=== PATIENT | female | born 1965 | race Caucasian/White ===

== ENCOUNTER 2016-11-23 14:00 | Emergency (ER) | payer OTHER ==
[2016-11-23 13:56] LABS: URINE SOURCE CLEAN CATCH
[2016-11-23 14:00] LABS: URINE APPEARANCE CLEAR; URINE BILIRUBIN NEG (NEG); URINE BLOOD 2+ (NEG); URINE COLOR YELLOW; URINE GLUCOSE NEG (NORM); URINE KETONE NEG (NEG); URINE LEUKOCYTE ESTERASE NEG (NEG); URINE NITRATE NEG (NEG); URINE PROTEIN NEG (NEG); URINE UROBILINOGEN 0.2 MG/DL (NORM)
[~2016-11-23 14:00] MED LIST: ACETAMINOPHEN325 MG PO; ALBUTEROL17 GM INH; BACTRIM 400-801 TA1 PO; CIPRO PO; DICLOFENAC PO; FLEXERIL PO; HYDRALAZINE HCL25 MG PO; IBUPROFEN PO; K-DUR20 ME2 PO; KETOPROFEN PO; LISINOPRIL PO; LISINOPRIL10 MG PO; LOPRESSOR PO; MUCINEX D1 TAB.SR1 PO; NO MEDICATIONS; ORUDIS75 M1 PO; PREDNISONE PO; PROAIR HFA8.5 GM IH; PYRIDIUM100 MG PO; ROBITUSSIN A-C-S1 ML PO; UNKNOWN B/P MED; VOLTAREN75 MG PO
[2016-11-23 14:08] LABS: MICRO INDICATED? YES
[2016-11-23 14:13] LABS: CULTURE INDICATED? NO; URINE BACTERIA NEG (NEG); URINE WBC 0-2 /[HPF] (0-5); URINE YEAST PRESENT
== END 2016-11-23 14:40 | disposition home or self-care (01) ==
LOC: SED 14:00
PROVIDERS: Emergency Medicine
DX: S39.012A Strain of muscle, fascia and tendon of lower back, initial encounter (principal); I10 Essential (primary) hypertension; J44.9 Chronic obstructive pulmonary disease, unspecified; F17.200 Nicotine dependence, unspecified, uncomplicated; Z90.49 Acquired absence of other specified parts of digestive tract; X58.XXXA Exposure to other specified factors, initial encounter; Y92.9 Unspecified place or not applicable
CPT/HCPCS: 81003; 84703; 99283